=== PATIENT | male | born 1930 | race Caucasian/White ===

== ENCOUNTER → 2017-08-14 | Outpatient (CLI) | payer OTHER, MEDICARE | LOC: CIMAGING 13:09 | PROVIDERS: ATTEND Internal Medicine | DX: M99.71 Connective tissue and disc stenosis of intervertebral foramina of cervical region (principal); M50.31 Other cervical disc degeneration, high cervical region; M50.321 Other cervical disc degeneration at C4-C5 level; M50.33 Other cervical disc degeneration, cervicothoracic region; M12.88 Other specific arthropathies, not elsewhere classified, other specified site; M43.22 Fusion of spine, cervical region | CPT/HCPCS: 72050-PO ==

== ENCOUNTER → 2017-08-17 | Outpatient (CLI) | payer OTHER, MEDICARE | LOC: CIMAGING 13:09 | PROVIDERS: ATTEND Internal Medicine | DX: G43.909 Migraine, unspecified, not intractable, without status migrainosus (principal); M50.31 Other cervical disc degeneration, high cervical region; M50.321 Other cervical disc degeneration at C4-C5 level; Z98.1 Arthrodesis status; I65.23 Occlusion and stenosis of bilateral carotid arteries | CPT/HCPCS: 72125-PO ==